=== PATIENT | male | born 1955 | race Hispanic/Latino ===

== ENCOUNTER 2017-03-06 06:42 | Day surgery (SDC) | payer MEDICARE ==
[2017-02-26 09:02] VITALS: BMI 30.4
[2017-03-06] MEDS ORDERED: Propofol 10 mg/ml Inj (20 ML) ONE (07:49)
[2017-03-06] MEDS ORDERED: ePHEDrine 50 mg/ml Inj ONE (08:05)
[2017-03-06] MEDS ORDERED: cefTRIAXone (Rocephin) 1 gm Inj ONE (08:11)
[2017-03-06] MEDS ORDERED: Oxycodone/Acetaminophen 5/325 mg Tab PO PRN (08:24)
[2017-03-06] MEDS ORDERED: Lactated Ringer's 1,000 ML IV SCH (08:27)
[2017-03-06 08:31] VITALS: TEMP 96.4
[2017-03-06 09:48] VITALS: PULSE 64; RESP 20; O2SAT 97
[2017-03-06 11:06] VITALS: BP 130/80
== END 2017-03-06 11:03 | disposition home or self-care (01) ==
LOC: SDS 06:42
PROVIDERS: ATTEND Urology
DX: R32 Unspecified urinary incontinence (principal)
CPT/HCPCS: 52000; J0696; J2001; J2704; J3010; J7120 ×2

== ENCOUNTER 2018-12-24 16:13 | Outpatient (CLI) | payer MEDICARE, MEDICAID | END 2018-12-24 16:14 | disposition home or self-care (01) | LOC: CARDIO 16:14 ==